=== PATIENT | female | born 1950 | race Caucasian/White ===

== ENCOUNTER → 2016-11-11 | Outpatient (CLI) | payer OTHER ==
[~2016-11-11] VITALS: Ht 167.6 cm; Wt 95.4 kg
[~2016-11-11] MED LIST: ASCOMP WITH CO1 EACH PO; CLARITIN10 M2 PO; ESTROPIPATE 1.1.5 M1 PO; LIDODERM 5%1 PATC1 TRANSDERM; METHOCARBAMOL500 M2 PO; MIDRIN CAPSULE1 CAP PO; NAPROSYN500 MG PO; NEURONTIN 300300 M1 PO; OMEPRAZOLE20 M1 PO; PERCOCET PO; PREVACID 30MG C30 M1 PO; RELAFEN750 MG PO; ROBAXIN500 MG PO; estropipate PO
--- NOTE | ~2016-11-11 | HPC ---
[facility] [place] [address] PAIN MANAGEMENT CONSULTATION Name: RONEY MINAYA Room #: REG JAYY Cardona#: [id number] Admission: 11/11/16 Attend Phys: Leopoldo Alas DO Discharge: Date of : 50 Report #: [id number] THIS REPORT FOR: //name// CC: Willam Alas HISTORY OF PRESENT ILLNESS: The patient is a pleasant 66-year-old female, who was seen in the pain clinic greater than 2 years ago, July 2014, for cervical radicular symptoms, given epidural injection at that time with excellent improvement of pain. Similarly, she had been given a single epidural injection in November 2010 for cervical radicular symptoms, again with excellent improvement following one injection. She returns to the pain clinic today noting cervical radicular symptoms have recurred over the past several months. She denies specific antecedent trauma and overuse. She has pain in the upper back and neck, radiating down the right arm to the fingers, with tingling and paresthesia into her hand. She notes that while she had no trauma, she may have exacerbated symptoms when she picked up a heavy cooler. She rates her pain anywhere from 2-6 on a 0-10 visual analog scale. Denies any systemic myelopathic symptoms. No bowel or bladder continence changes or loss of proprioception or lower extremity strength changes. REVIEW OF SYSTEMS: Complete review of systems was gone over with the patient. Generally healthy 66-year-old female. Does take female hormone replacement, seasonal antihistamine. Most recently, she has been taking methocarbamol, gabapentin and Naprosyn for cervical radicular symptoms. She does take codeine, butalbital, aspirin and caffeine product occasionally for headaches. PHYSICAL EXAMINATION: GENERAL: Reveals a 66-year-old female, 167 cm and 95 kilograms. BMI is 34 kilograms per meter squared. VITAL SIGNS: Blood pressure 172/81, pulse 92 and respirations 16. HEENT: She has a little bit of disconjugate gaze. Otherwise, extraocular muscles are intact. NEUROLOGIC: Cervical range of motion is limited with a positive Lhermitte. Right arm does show slight decreased strength to abduction and triceps strength. Hand grasp is symmetric. Deep tendon reflexes modestly diminished for the right biceps and brachioradialis. HEART: Regular and rhythmical. LUNGS: Clear. MUSCULOSKELETAL: Gait is tandem. DIAGNOSTIC STUDIES: We reviewed diagnostic study again, quite dated at this point, from February of 2010, noting [id number]-[id number] bilateral neural foraminal narrowing at C5-C6. [address] [address] PAIN MANAGEMENT CONSULTATION Name: RONEY MINAYA Room #: REG [facility] Brendan#: [id number] Admission: 11/11/16 Attend Phys: Leopoldo Alas DO Discharge: Date of : 50 Report #: [id number] ASSESSMENT: Symptomatic cervical radiculopathy by clinical exam and history. RECOMMENDATIONS: 1. Cervical epidural injection under fluoroscopy today. 2. Continue naproxen sodium OTC. Follow up in 3 weeks for reevaluation, cancel if doing well. PROCEDURE NOTE PROCEDURE: Cervical epidural injection under fluoroscopy. PROCEDURE NOTE: After written and informed consent was obtained including risk of dural puncture, spinal cord trauma, paralysis and increased pain, the patient was taken to the fluoroscopy suite and placed in the prone position, with appropriate abdominal bolstering, neck was flexed, palms under the thighs. Skin was prepped with ChloraPrep. Sterile draping was applied. Skin wheal with 1% Xylocaine was raised. A 22-gauge 3-1/2 inch epidural Tuohy needle was placed via a midline approach at the level of C7-T1 interspace, advanced under biplanar fluoroscopy using continuous loss of resistance. With appropriate loss of resistance at the expected depth on lateral view, the glass loss of resistance syringe was disconnected. A low volume extension tubing was connected to the needle and a 5 mL syringe. Negative aspiration for cerebrospinal fluid or blood was noted. A 1 mL of Omnipaque was injected which showed spread within the epidural space on biplanar fluoroscopy. This was followed with 80 mg of triamcinolone plus 1 mL of 1.5% preservative Xylocaine. Needle was withdrawn to the interspinous ligament, 0.5 mL of Xylocaine was used to flush the needle. The needle was then completely withdrawn. The area was cleansed. Band-Aid was applied. The patient was allowed to move off the procedure table and ambulated to the recovery room, monitored for an appropriate period of time, discharged in good and stable condition. <ELECTRONICALLY SIGNED> By: Leopoldo Alas DO 11/12/16 0948 [id number] Leopoldo Alas DO /nt
[2016-11-11 11:37] VITALS: BP 172/81
== END ==
LOC: PAIN 07:00
DX: M54.12 Radiculopathy, cervical region (principal); M47.899 Other spondylosis, site unspecified

== ENCOUNTER → 2017-01-13 | Outpatient (CLI) | payer OTHER ==
[~2017-01-13] VITALS: Ht 170.2 cm; Wt 95.7 kg
[~2017-01-13] MED LIST changes: +GLUCOSAMINE HC500 MG PO; +IBUPROFEN 200200 M1 PO
--- NOTE | ~2017-01-13 | HPC ---
[facility] [place] [address] [address] PAIN MANAGEMENT CONSULTATION Name: RONEY MINAYA Room #: REG JAYY Brendan#: [id number] Admission: 01/13/17 Attend Phys: Leopoldo Alas DO Discharge: Date of : 50 Report #: [id number] THIS REPORT FOR: //name// CC: Willam Alas HISTORY OF PRESENT ILLNESS: The patient is a very pleasant 66-year-old female. She was given a cervical epidural injection in 2010 and again in 2014. Somewhat lost to follow up. We saw her again on 11/11/2016, cervical radicular symptoms recurred, right C6 radicular pattern. The patient was given a single epidural injection at that time, continued on Aleve [id number]. The patient returns to pain clinic today noting she had dramatic improvement of pain, but has gradually begun to recur, fairly significant at right neck, shoulder, arm in C6 pattern. Positive Lhermitte sign. Incidentally, she has ongoing left knee pain, is getting a series of Synvisc typre injections from Dr. Burgess (Euflexxa). PHYSICAL EXAMINATION: Again, positive Lhermitte's sign. Slight decreased right biceps strength, the grasp strength; decreased right biceps reflex compared to left. Quite dated MRI from 2009 notes severe bilateral neural foraminal stenosis C5-C6. ASSESSMENT: Symptomatic cervical radiculopathy. RECOMMENDATIONS: 1. Cervical epidural injection under fluoroscopy today. 2. Continue Aleve [id number]. 3. MRI of the cervical spine. 4. If this does not afford significant ongoing relief, we will refer to Neurosurgery for likely surgical intervention. If she gets incremental relief and the pain comes back improved, but still problematic, we may consider a third epidural injection, though I fear given her now 7-year history of cervical radicular symptoms, neural foraminal stenosis some 7 years ago with ongoing symptoms that likely she will end up in surgery. ASSESSMENT: Symptomatic cervical radiculopathy. PROCEDURE: Cervical epidural injection under fluoroscopy. PROCEDURE NOTE: After written and informed consent was obtained including risk of dural puncture, spinal cord trauma, paralysis and increased pain, the patient was taken to the fluoroscopy suite and placed in the prone position, with appropriate abdominal bolstering, neck was flexed, palms under the thighs. [address] [address] PAIN MANAGEMENT CONSULTATION Name: MARIMARRODRIT Room #: REG JAYY Cardona#: [id number] Admission: 01/13/17 Attend Phys: Leopoldo Alas DO Discharge: Date of : 50 Report #: [id number] Skin was prepped with ChloraPrep. Sterile draping was applied. Skin wheal with 1% Xylocaine was raised. A 22-gauge 3-1/2 inch epidural Tuohy needle was placed via a midline approach at the C7-T1 interspace, advanced under biplanar fluoroscopy using continuous loss of resistance. With appropriate loss of resistance at the expected depth on lateral view, the glass loss of resistance syringe was disconnected. A low volume extension tubing was connected to the needle and a 5 mL syringe. Negative aspiration for cerebrospinal fluid or blood was noted. A 1 mL of Omnipaque was injected which showed spread within the epidural space on biplanar fluoroscopy. This was followed with 80 mg of triamcinolone plus 1 mL of 1.5% preservative Xylocaine. Needle was withdrawn to the interspinous ligament, 0.5 mL of Xylocaine was used to flush the needle. The needle was then completely withdrawn. The area was cleansed. Band-Aid was applied. The patient was allowed to move off the procedure table and ambulated to the recovery room, monitored for an appropriate period of time, discharged in good and stable condition. <ELECTRONICALLY SIGNED> By: Leopoldo Alas DO 01/13/17 1008 [id number] Leopoldo Alas DO /nt
[2017-01-13 09:07] VITALS: BP 169/85
== END | disposition home or self-care (01) ==
LOC: PAIN 12-03 08:51
DX: M54.12 Radiculopathy, cervical region (principal); Z98.890 Other specified postprocedural states

== ENCOUNTER → 2017-01-19 | Outpatient (CLI) | payer OTHER ==
[~2017-01-19] MED LIST changes: +ALLER-EASE60 MG PO; +ESTRACE1 MG PO; +EXCEDRIN CAPLE1 EACH PO; +XANAX 0.5 MG0.5 MG PO
== END ==
LOC: MRI 09:37
DX: M47.22 Other spondylosis with radiculopathy, cervical region (principal); M25.511 Pain in right shoulder

== ENCOUNTER 2017-01-26 14:02 | Emergency (ER) | payer OTHER ==
[~2017-01-26] VITALS: Ht 167.6 cm; Wt 95.3 kg
[~2017-01-26 14:02] MED LIST changes: -ALLER-EASE60 MG PO; -ESTRACE1 MG PO; -EXCEDRIN CAPLE1 EACH PO; -XANAX 0.5 MG0.5 MG PO
[2017-01-26] MEDS ORDERED: ESTRACE1 MG PO (14:57)
[2017-01-26] MEDS ORDERED: ALLER-EASE60 MG PO (14:58)
[2017-01-26] MEDS ORDERED: EXCEDRIN CAPLE1 EACH PO (14:59)
[2017-01-26] MEDS ORDERED: NAPROSYN500 MG PO (14:59)
[2017-01-26] MEDS ORDERED: XANAX 0.5 MG0.5 MG PO (15:00)
[2017-01-27] MEDS ORDERED: NORCO 5-325 TA1 EACH PO (09:33)
[2017-01-27] MEDS ORDERED: NORCO 7.5-3251 EACH PO (09:38)
== END 2017-01-26 17:00 | disposition home or self-care (01) ==
LOC: ER 14:02
DX: G43.909 Migraine, unspecified, not intractable, without status migrainosus (principal); F10.99 Alcohol use, unspecified with unspecified alcohol-induced disorder; Z90.710 Acquired absence of both cervix and uterus

== ENCOUNTER → 2017-01-27 | Outpatient (CLI) | payer OTHER ==
[~2017-01-27] VITALS: Ht 167.6 cm; Wt 94.3 kg
[~2017-01-27] MED LIST changes: +ALLER-EASE60 MG PO; +ESTRACE1 MG PO; +EXCEDRIN CAPLE1 EACH PO; +NORCO 5-325 TA1 EACH PO; +NORCO 7.5-3251 EACH PO; +XANAX 0.5 MG0.5 MG PO
--- NOTE | ~2017-01-27 | HPC ---
[facility] [address] [place] [address] PAIN MANAGEMENT CONSULTATION Name: RONEY MINAYA Room #: REG JAYY Cardona#: [id number] Admission: 01/27/17 Attend Phys: Leopoldo Alas DO Discharge: Date of : 50 Report #: [id number] THIS REPORT FOR: //name// CC: Willam Alas The patient is a pleasant 66-year-old female. She has ongoing symptomatic cervical radiculopathy, did well with a single injection in November, last injection was 01/13/2017. She notes the November injection gave good relief, the second injection really afforded no significant relief. She has ongoing pain in right neck, shoulder and lateral forearm to the fingers. I reviewed the patient's MRI from 01/19/2017. C5-C6 notes bilateral neural foraminal narrowing with canal narrowed to about 0.95 cm and C6-C7 notes uncinate changes, more marked on the right with some neural foraminal narrowing on this right side as well. PHYSICAL EXAMINATION: Shows grossly positive Lhermitte's with pain radiating into the right side. Subjective pain score is 6 on a VAS. Notes pain is exacerbated picking up a heavy cooler. Tingling in her hands. ASSESSMENT: Symptomatic cervical radiculopathy by clinical exam and history. RECOMMENDATIONS: 1. We will provide the patient with a short course of hydrocodone 7.5/325, limit 45 tablets. She takes hydrocodone 5/325 typically for ongoing pain concerns. 2. Cervical epidural injection under fluoroscopy today. 3. If this does not afford adequate relief, we will refer her to Neurosurgery for possible definitive intervention, aware that MRI findings are fairly normal, but she has fairly classic right C6 radicular pain pattern. PROCEDURE: Cervical epidural injection under fluoroscopy. PROCEDURE NOTE: After written and informed consent was obtained including risk of dural puncture, spinal cord trauma, paralysis and increased pain, the patient was taken to the fluoroscopy suite and placed in the prone position, with appropriate abdominal bolstering, neck was flexed, palms under the thighs. Skin was prepped with ChloraPrep. Sterile draping was applied. Skin wheal with 1% Xylocaine was raised. A 22-gauge 3-1/2 inch epidural Tuohy needle was placed via a midline approach at the C7-T1 interspace, advanced under biplanar fluoroscopy using continuous loss of resistance. With appropriate loss of resistance at the expected depth on lateral view, the glass loss of resistance syringe was disconnected. A low volume extension tubing was connected to the needle and a 5 mL syringe. Negative aspiration for cerebrospinal fluid or blood was noted. A 1 mL of Omnipaque was injected which showed spread within the epidural space on biplanar fluoroscopy. This was followed with [address] [facility] [address] [place] [address] PAIN MANAGEMENT CONSULTATION Name: RONEY MINAYA Room #: REG JAYY Cardona#: [id number] Admission: 01/27/17 Attend Phys: Leopoldo Alas DO Discharge: Date of : 50 Report #: [id number] triamcinolone plus 1 mL of 1.5% preservative Xylocaine. Needle was withdrawn to the interspinous ligament, 0.5 mL of Xylocaine was used to flush the needle. The needle was then completely withdrawn. The area was cleansed. Band-Aid was applied. The patient was allowed to move off the procedure table and ambulated to the recovery room, monitored for an appropriate period of time, discharged in good and stable condition. <ELECTRONICALLY SIGNED> By: Leopoldo Alas DO 01/28/17 1225 [id number] [id number] Leopoldo Alas DO /nt
[2017-01-27 09:25] VITALS: BP 140/67
== END | disposition home or self-care (01) ==
LOC: PAIN 06:53
DX: M54.12 Radiculopathy, cervical region (principal); Z98.890 Other specified postprocedural states

== ENCOUNTER → 2019-04-02 | Outpatient (CLI) | payer OTHER ==
[~2019-04-02] MED LIST changes: +ASPIRIN325 PO; +GLUCOSAMINE CH1 EA10 PO; +OMEPRAZOLE 20 M20 MG PO; +PERCOCET 10-321 EACH PO; +XARELTO10 MG PO
== END ==
LOC: NUC 09:26 → TBA 14:59 → NUC 15:38
DX: M81.0 Age-related osteoporosis without current pathological fracture (principal); Z78.0 Asymptomatic menopausal state

== ENCOUNTER → 2019-12-20 | Outpatient (CLI) | payer OTHER | LOC: MRI 09:36 | PROVIDERS: ATTEND Family Medicine | DX: S83.241A Other tear of medial meniscus, current injury, right knee, initial encounter (principal); X58.XXXA Exposure to other specified factors, initial encounter; Y93.89 Activity, other specified; Y92.89 Other specified places as the place of occurrence of the external cause; Y99.8 Other external cause status; M71.21 Synovial cyst of popliteal space [Baker], right knee; M25.861 Other specified joint disorders, right knee ==

== ENCOUNTER → 2020-08-01 | Outpatient (CLI) | payer OTHER | LOC: MRI 07-22 10:43 | PROVIDERS: ATTEND Family Medicine | DX: S83.241A Other tear of medial meniscus, current injury, right knee, initial encounter (principal); M25.461 Effusion, right knee; M71.21 Synovial cyst of popliteal space [Baker], right knee; X58.XXXA Exposure to other specified factors, initial encounter; Y93.89 Activity, other specified; Y92.89 Other specified places as the place of occurrence of the external cause; Y99.8 Other external cause status ==